=== PATIENT | female | born 1980 | race Two or more races ===

== ENCOUNTER 2023-06-26 07:06 | Outpatient (CLI) | payer OTHER | END 2023-06-26 07:24 | disposition home or self-care (01) | LOC: LAB 07:06 | PROVIDERS: ATTEND Internal Medicine Hematology & Oncology | DX: D50.8 Other iron deficiency anemias (principal); I10 Essential (primary) hypertension; R74.02 Elevation of levels of lactic acid dehydrogenase [LDH]; K76.89 Other specified diseases of liver; D51.1 Vitamin B12 deficiency anemia due to selective vitamin B12 malabsorption with proteinuria; D51.0 Vitamin B12 deficiency anemia due to intrinsic factor deficiency; E03.8 Other specified hypothyroidism; E06.3 Autoimmune thyroiditis; D68.59 Other primary thrombophilia; D68.61 Antiphospholipid syndrome; E72.12 Methylenetetrahydrofolate reductase deficiency; F41.1 Generalized anxiety disorder ==